=== PATIENT | male | born 1985 | race African-American/Black ===

== ENCOUNTER 2023-01-02 10:41 | Emergency (ER) | payer SELFPAY ==
[~2023-01-02] VITALS: Ht 177.8 cm; Wt 103.0 kg
[2023-01-02 11:04] VITALS: BP 147/91; PULSE 57; RESP 18; TEMP 98; O2SAT 99
[2023-01-02] MEDS ORDERED: IBUP-2029 PO (12:35)
== END 2023-01-02 13:03 | disposition home or self-care (01) ==
LOC: ER 10:41
DX: S92.425A Nondisplaced fracture of distal phalanx of left great toe, initial encounter for closed fracture (principal); X58.XXXA Exposure to other specified factors, initial encounter; Y93.89 Activity, other specified; Y92.89 Other specified places as the place of occurrence of the external cause; Y99.8 Other external cause status
CPT/HCPCS: 73630; 99283; Z7610